=== PATIENT | female | born 1975 | race Hispanic/Latino ===

== ENCOUNTER 2019-09-26 18:35 | Emergency (ER) | payer SELFPAY ==
--- NOTE | 2019-09-26 20:30 | RAD ---
LEFT FOOT THREE VIEWS: 09/26/19 There is some soft tissue swelling on the dorsum of the forefoot. The underlying metatarsals all appe ar intact. No fractures were appreciated. A large calcaneal spur is present. IMPRESSION: No acute bony findings. POS: HOME
== END 2019-09-26 20:30 | disposition home or self-care (01) ==
LOC: BURERS 18:35
DX: S90.32XA Contusion of left foot, initial encounter (principal); W20.8XXA Other cause of strike by thrown, projected or falling object, initial encounter

== ENCOUNTER 2020-03-13 21:04 | Emergency (ER) | payer SELFPAY ==
[2020-03-14 18:02] LABS: SARS-CoV-2 PCR by NAA DETECTED (NotDetected)
== END 2020-03-13 21:45 | disposition home or self-care (01) ==
LOC: BURERS 21:04
DX: U07.1 COVID-19 (principal)
CPT/HCPCS: 87635; 87804; 99284; U0003; U0005

== ENCOUNTER 2020-09-26 13:18 | Outpatient (CLI) | payer OTHER | END 2020-09-26 13:19 | disposition home or self-care (01) | LOC: BURRAD 13:18 | PROVIDERS: ATTEND Nurse Practitioner Family | DX: S52.91XA Unspecified fracture of right forearm, initial encounter for closed fracture (principal); S63.90XA Sprain of unspecified part of unspecified wrist and hand, initial encounter ==

== ENCOUNTER 2021-05-01 11:13 | Outpatient (CLI) | payer OTHER | END 2021-05-01 11:14 | disposition home or self-care (01) | LOC: BURRAD 11:13 | PROVIDERS: ATTEND Nurse Practitioner Family | DX: S49.92XA Unspecified injury of left shoulder and upper arm, initial encounter (principal) | CPT/HCPCS: 71046; 72100 ==

== ENCOUNTER 2021-08-04 17:39 | Outpatient (CLI) | payer OTHER | END 2021-08-04 17:40 | disposition home or self-care (01) | LOC: BURRAD 17:39 | PROVIDERS: ATTEND Family Medicine | DX: S90.851A Superficial foreign body, right foot, initial encounter (principal); M77.31 Calcaneal spur, right foot ==

== ENCOUNTER 2022-06-09 01:56 | Emergency (ER) | payer SELFPAY ==
[2022-06-09 02:55] LABS: #Basophils 0.1 thou/uL (0.0-0.2); #Eosinphils 0.3 thou/uL (0.0-0.7); #Monocytes 0.5 thou/uL (0.11-0.59); #Neutrophils 3.9 thou/uL (1.40-6.50); %Basophils 0.9 % (0.0-1.0); %Eosinophils 4.1 % (0.0-10.0); %Lymphocytes 29.8 % (21.0-51.0); %Monocytes 7.5 % (0.0-10.0); %Neutrophils 57.6 % (42.0-75.0); Hemoglobin 10.6 g/dL (12.0-16.0); Mean Corpuscular HGB CONC 32.2 g/dL (32.0-36.0); Mean Corpuscular Hemoglobin 27.5 pg (27.0-31.0); Mean Corpuscular Volume 85.3 fl (78.0-98.0); Mean Platelet Volume 9.7 fL (7.4-10.4); Platelet Count 217 10x3/uL (130-400); RBC Distribution Width 13.1 % (11.5-14.5); Red Blood Cell (RBC) Count 3.86 mill/uL (4.20-5.40); White Blood Cell (WBC) Count 6.8 10x3/uL (4.8-10.8)
[2022-06-09 02:59] LABS: ALT (SGPT) 31 U/L (8-55); AST (SGOT) 26 U/L (5-34); Albumin 3.9 g/dL (3.5-5.0); Alkaline Phosphatase 112 U/L (40-110); Anion Gap 11 mmol/L (10-20); BUN (Urea Nitrogen) 14 mg/dL (7.0-18.7); Bilirubin, Total 0.3 mg/dL (0.2-1.2); Calc. Creatinine Clearance 0 mL/min (70-130); Calcium 8.8 mg/dL (7.8-10.44); Carbon Dioxide 20 mmol/L (22-29); Chloride 109 mmol/L (98-107); Estimated GFR 111; Globulin 2.9 g/dL (2.4-3.5); Glucose 103 mg/dL (70-105); Potassium 3.5 mmol/L (3.5-5.1); Protein, Total 6.8 g/dL (6.0-8.3); Sodium 136 mmol/L (136-145)
[2022-06-09 04:07] LABS: Troponin I Less than 0.010 ng/mL (< 0.028)
[2022-06-09] MEDS ORDERED: Pantoprazole 40 MG VIAL ONE (05:19)
[2022-06-09] MEDS ORDERED: Lidocaine Viscous Sol 2% 15 ml UD Cup ONE (05:19)
[2022-06-09] MEDS ORDERED: Mag-Al Plus 1200 MG/1200 MG/120 MG/30 ML UDCUP ONE (05:19)
== END 2022-06-09 05:30 | disposition home or self-care (01) ==
LOC: BURERS 01:56
DX: R07.9 Chest pain, unspecified (principal)
CPT/HCPCS: 36415; 71045; 80053; 83880; 84484; 85025; 93005; 96374; C9113